=== PATIENT | female | born 2005 | race Two or more races ===

== ENCOUNTER 2024-12-03 06:59 | Emergency (ER) | payer MEDICAID, OTHER ==
[~2024-12-03] VITALS: Ht 162.6 cm; Wt 51.9 kg
[2024-12-03 07:50] LABS: Hematocrit 43.9 % (36.0-46.0); Hemoglobin 15.0 g/dL (12.2-16.2); Mean Corpuscular Hemoglobin 30.0 pg (28.0-32.0); Mean Corpuscular Volume 87.9 fL (80.0-100.0); Nucleated Red Blood Cells % 0.0 %
[2024-12-03 08:02] LABS: Chloride 103 mmol/L (98-107); Potassium 3.7 mmol/L (3.5-5.1); Sodium 139 mmol/L (136-145)
[2024-12-03 08:03] LABS: Anion Gap 8 (5-15); Calcium 9.7 mg/dL (8.7-10.4); Carbon Dioxide 28 mmol/L (20-31)
[2024-12-03 08:08] LABS: BUN/Creatinine Ratio 13.4 (10.0-20.0); Blood Urea Nitrogen 9 mg/dL (9-23); Glucose 83 mg/dL (74-106)
--- NOTE | 2024-12-03 08:36 | ED.PDOC ---
EVENTS INTERN HPI Comments Yelitza Rose is a 19-year old female, with no relevant past medical h istory. The patient came to the ED with a chief complaint of 1 month of vaginal bleeding on and off, with some days with abundant flow and other days only spotting; associated with pelvic pain 3/10 cramp like. On further questioning, the patient report she is 6 month , there was no complications during the delivery, but during the end of the she experienced preclampsia; right after the delivery she started injectable contraceptive, reporting that her last normal menstrual period was on June. Two days ago, the patient reports feeling dizzy and fatigued, this prompted her visit to the ED. The patient denies fever chills, vaginal discharge or other symptoms. Pelvic/ vaginal US and labs have been ordered. Chief Complaint: Vaginal Bleed Time Seen by MD: 08:23 Reviewed Notes: Nurses Notes, Medications, Allergies Allergies: Coded Allergies: NO KNOWN ALLERGIES (Unverified , 12/03/24) Information Source: Patient Mode of Arrival: Ambulatory Timing: Months Severity: Mild Bleeding Quality: Bright Red, Clotted Onset Of Mass/Bleeding: Spontaneous, Intermenstrual Control: Depo-Provera Associated Signs and Symptoms: Cramping Past Medical History PAST MEDICAL HISTORY: Denies Surgical History: [employer] History: Other (Preclampsia) 1 Para 1 AB 0 LMP June (patient does not recall exact day) Family History Family History: Reviewed,noncontributory to illness Social History Smoker: Non-Smoker Alcohol: Denies ETOH Use Drugs: Denies Drug Use Lives In: Home Constitutional: reports: fatigue, weakness; denies: chills, diaphoresis, fever, malaise, sweats, others EENTM: denies: blurred vision, double vision, ear bleeding, ear discharge, ear drainage, ear pain, ear ringing, eye pain, eye redness, hearing loss, mouth pain, mouth swelling, nasal discharge, nose bleeding, nose congestion, nose pain, photophobia, tearing, throat pain, throat swelling, voice changes, others Respiratory: denies: cough, hemoptysis, orthopnea, SOB at rest, shortness of breath, SOB with excertion, stridor, wheezing, others Cardiovascular: denies: chest pain, dizzy spells, diaphoresis, Dyspnea on exertion, edema, irregular heart beat, left arm pain, lightheadedness, palpitations, PND, syncope, others Gastrointestinal: reports: abdominal pain (Pelvic pain); denies: abdomen distended, blood streaked bowels, constipated, diarrhea, dysphagia, difficulty swallowing, hematemesis, melena, nausea, poor appetite, poor fluid intake, rectal bleeding, rectal pain, vomiting, others Genitourinary: reports: abnormal vagina bleeding; denies: burning, dyspareunia, dysuria, flank pain, frequency, hematuria, incontinence, pain, , vagina discharge, urgency, others Neurological: denies: dizziness, fainting, headache, left sided numbness, left sided weakness, numbness, paresthesia, pre-existing deficit, right sided numbness, right sided weakness, seizure, speech problems, tingling, tremors, weakness, others Musculoskeletal: denies: back pain, gout, joint pain, joint swelling, muscle pain, muscle stiffness, neck pain, others Integumetry: denies: bruises, change in color, change in hair/nails, dryness, laceration, lesions, lumps, rash, wounds, others Allergic/Immunocompromised: denies: Difficulty Healing, Frequent Infections, Hives, Itching, others Hematologic/Lymphatic: denies: anemia, blood clots, easy bleeding, easy bruising, swollen glands, others Endocrine: denies: excessive hunger, excessive sweating, excessive thirst, excessive urination, flushing, intolerance to cold, intolerance to heat, unexplained weight gain, unexplained weight loss, others Psychiatric: denies: anxiety, bipolar disorder, depression, hopeless, panic disorder, schizophrenia, sleepless, suicidal, others Physical Exam General Appearance: No Apparent Distress HEENT: Normal ENT Inspection, Pharynx Normal, TMs Normal Neck: Full Range of Motion, Non-Tender, Normal, Normal Inspection Respiratory: Chest Non-Tender, Lungs Clear, No Accessory Muscle Use, No Respiratory Distress, Normal Breath Sounds Cardiovascular: No Edema, No JVD, No Murmur, No Gallop, Normal Peripheral Pulses, Regular Rate/Rhythm Breast Exam: Deferred Gastrointestinal: No Organomegaly, Non Tender, No Pulsatile Mass, Normal Bowel Sounds, Soft Genitalia: Deferred Pelvic: Vaginal Bleeding Rectal: Deferred Extremities: No calf tenderness, Normal capillary refill, Normal inspection, Normal range of motion, Non-tender, No pedal edema Neurologic: Alert, epic trainer II-XII nml as Tested, No Motor Deficits, Normal Affect, Normal Mood, No Sensory Deficits Cerebellar Function: Normal Reflexes: Normal Skin: Dry, Normal Color, Warm Lymphatic: No Adenopathy Was a procedure done? Was a procedure done?: No Differential Diagnosis ([employer]) Vaginal Bleeding: Blood Loss Anemia, Menorrhagia, Myomatous Uterus, Other (molar ) Mass / Lesion: N/A Vaginal Discharge: N/A X-Ray, Labs, Meds, VS Vital Signs Date Time Temp Pulse Resp B/P (MAP) Pulse Ox O2 Delivery O2 Flow Rate FiO2 12/03/24 10:33 98 Room Air* 0 21 12/03/24 10:15 98.6 86 21 104/67 (79) 98 98.6 12/03/24 06:59 97.9 94 18 102/70 98 97.9 Lab Test 12/03/24 07:24 Range/Units White Blood Count 8.5 4.4-10.8 10^3/uL Red Blood Count 5.00 4.0-5.20 10^6/uL Hemoglobin 15.0 12.2-16.2 g/dL Hematocrit 43.9 36.0-46.0 % Mean Corpuscular Volume 87.9 80.0-100.0 fL Mean Corpuscular Hemoglobin 30.0 28.0-32.0 pg Mean Corpuscular Hemoglobin Concent 34.1 32.0-36.0 g/dL Red Cell Distribution Width 13.3 11.8-14.3 % Platelet Count 256 140-450 10^3/uL Mean Platelet Volume 8.5 6.9-10.8 fL Neutrophils (%) (Auto) 53.6 37.0-80.0 % Lymphocytes (%) (Auto) 35.4 10.0-50.0 % Monocytes (%) (Auto) 7.7 0.0-12.0 % Eosinophils (%) (Auto) 2.4 0.0-7.0 % Basophils (%) (Auto) 0.9 0.0-2.0 % Neutrophils # (Auto) 4.5 1.6-8.6 10 ^3/uL Lymphocytes # (Auto) 3.0 0.4-5.4 10 ^3/uL Monocytes # (Auto) 0.7 0-1.3 10 ^3/uL Eosinophils # (Auto) 0.2 0-0.8 10 ^3/uL Basophils # (Auto) 0.1 0-0.2 10 ^3/uL Nucleated Red Blood Cells 0.0 % Sodium Level 139 136-145 mmol/L Potassium Level 3.7 3.5-5.1 mmol/L Chloride Level 103 98-107 mmol/L Carbon Dioxide Level 28 20-31 mmol/L Anion Gap 8 5-15 Blood Urea Nitrogen 9 9-23 mg/dL Creatinine 0.67 0.550-1.02 mg/dL Glomerular Filtration Rate Calc 128 >90 mL/min BUN/Creatinine Ratio 13.4 10.0-20.0 Serum Glucose 83 74-106 mg/dL Calcium Level 9.7 8.7-10.4 mg/dL Beta HCG, Quantitative 0.0 L 1.5-4.2 mIU/mL X-Ray, Labs, Meds, VS Comment The patient was re-evaluated, Hb: 15.0 Hto:43, WBC: 8.5 US: Color and duplex Doppler interrogation of the ovaries demonstrated symmetric vascular flow to both ovaries, though this does not exclude the possibility of torsion due to the dual blood supply. Grossly unremarkable pelvic ultrasound. Time of 1ST Reevaluation: 10:16 Reevaluation 1ST: Unchanged Patient Education/Counseling: Diagnosis, Treatment, Prognosis, Need For Follow Up Family Education/Counseling: Diagnosis, Treatment, Prognosis, Need For Follow Up Departure 1 Departure Time of Disposition: 10:21 Impression: Primary Impression: Vaginal bleeding Additional Impression: Menorrhagia Disposition: 01 HOME / SELF CARE / HOMELESS Condition: Good Referrals D/C clinic to establish PCP care Tylenol 500mg po prn for pain Warm compresses for cramps Referrals: JOEY WHITTINGTON DO Additional Instructions: Instructions when to return to the ED Discharged With: Self, Spouse Comments Goals of care discussed with the patient > 35 min. Discussed plan of care with Dr. Shelton Code status: Full code PCP: No established yet. The patient will f/u in the D/C clinic and establish care. Plan discussed with: Patient and partner, the patient agrees with the plan. Critical Care Note Critical Care Time?: No Stability Stability form required: No Stable for transfer: N/A Unstable for transfer: N/A Heart Score Heart Score: Heart Score Response (Comments) Value History N/A 0 EKG N/A 0 Age N/A 0 Risk Factors N/A 0 Troponin N/A 0 Total 0 CHERI LOPEZ RESIDENT Dec 03, 2024 08:36
--- NOTE | 2024-12-03 08:39 | DVH ---
INDICATION: , vaginal bleeding TECHNIQUE: Multiple real-time grayscale transabdominal and transvaginal sonographic images along with color and duplex Doppler of the uterus and ovaries were obtained. COMPARISON: None FINDINGS: The uterus measures 5.5 x 3.4 x 4.2 cm. The endometrial stripe measures 0.6 cm. The right ovary measures 3.3 x 1.6 x 1.8 cm. The left ovary measures 2.7 x 1.5 x 2.2 cm. Subsequent color and duplex Doppler interrogation of the ovaries demonstrated symmetric vascular flow to both ovaries, though this does not exclude the possibility of torsion due to the dual blood suppl y. IMPRESSION: 1. Grossly unremarkable pelvic ultrasound.
[2024-12-03 10:15] VITALS: BP 104/67; PULSE 86; RESP 21; TEMP 98.6
[2024-12-03 10:33] VITALS: O2SAT 98
== END 2024-12-03 13:03 | disposition home or self-care (01) ==
LOC: ER 06:59
DX: N93.9 Abnormal uterine and vaginal bleeding, unspecified (principal); N92.0 Excessive and frequent menstruation with regular cycle; R10.2 Pelvic and perineal pain; Z98.890 Other specified postprocedural states
CPT/HCPCS: 36415; 76830; 76856; 80048; 84702; 85025